=== PATIENT | male | born 1990 | race Caucasian/White ===

== ENCOUNTER 2016-11-03 20:50 | Emergency (ER) | payer OTHER ==
--- NOTE | 2016-11-03 22:20 | ER PHYSICIAN DOCUMENTATION ---
Physician Documentation [facility] Name:See Montoya Age:26 yrs Sex:Male :1990 Arrival Date:11/03/2016 Time:20:50 Bed1 Private MD: Ramu Rodriguez Disposition: 11/03/16 22:08 Discharged to Home/Self Care. Impression: Hand Laceration - : 3cm length; Simple Surgical Closure (by MD). - Condition is Good. - Discharge Instructions: LACERATION, Hand. - Medical Reconciliation form form. - Follow up: Private Physician; When: 11/13/2016; Reason: Continuance of care, Staple/Suture removal. - Problem is new. - Symptoms are resolved. - Notes: Keep wound clean, dry and covered. Wash with soapy water every day, dry and apply Bacitracin Ointment each day. Sutures out in 10 days. Remember Year 2016....your last Tetanus Booster! HPI: 11/03 21:15 This 26 yrs old Male presents to ER via Private Vehicle with complaints of cd Laceration To Hand - LEFT. 21:15 The patient has a laceration related to: patient reports "cutting a bar of soap with a cd knife" and ended up cutting the palm of his left hand occurred at home, and there are no complicating factors. The injury was accidental. The laceration(s) is(are) located on the palm of left hand. Onset: The symptom(s)/episode began/occurred acutely, just prior to arrival. Associated signs and symptoms: The patient has no apparent associated signs or symptoms. Historical: - Allergies: No known drug Allergies; - Home Meds: 1. levothyroxine oral - PMHx: HYPOTHYROIDISM; - PSHx: None; - Tetanus: < 10 years. - Ebola Screening: : Patient negative for fever greater than or equal to 101.5 degrees Fahrenheit, and additional compatible Ebola Virus Disease symptoms. - Immunization history: Flu Vaccine None. - Social history: Smoking status: Patient states was never smoker of tobacco. ROS: 21:15 MS/extremity: Positive for laceration, of the palm of left hand. cd 21:15 Skin: Positive for laceration(s). 21:15 Neuro: Negative for numbness, tingling. 21:15 All other systems are negative. Exam: 21:15 Musculoskeletal/extremity: Extremities: grossly normal except: noted in the palm of cd left hand: laceration, ROM: no acute changes, Circulation is intact in all extremities. Sensation intact. 21:15 Constitutional: The patient appears alert, anxious. 21:15 Skin: Appearance: normal except for affected area, injury, laceration(s), the wound is approximately 3 cm(s), with a depth of 0.5 cm(s), of the palm of left hand, that can be described as clean, no foreign body, linear, with mild bleeding. Vital Signs: 21:16 BP 119 / 71; Pulse 78; Resp 15; Temp 98.3(TE); Pulse Ox 96% on R/A; Weight 74.39 kg; rh Height 5 ft. 9 in. (175.26 cm); Pain 0/10; 21:16 Body Mass Index 24.22 (74.39 kg, 175.26 cm) rh Laceration: 21:15 Wound Repair of 3cm ( 1.2in ) subcutaneous laceration to palm of left hand. Linear cd shaped.. Minimal bleeding noted.. Distal neuro/vascular/tendon intact. Anesthesia: Local anesthetic administered with 4 mls of 0.5% marcaine. Wound prep: Extensive cleansing with hibiclenz. Skin closed with 12 5-0 Ethilon using Interrupted sutures. Dressed with Bacitracin, Nasir. Patient tolerated well. MDM: 21:09 Patient medically screened. cd 21:20 Data interpreted: Pulse oximetry: on room air is 96 %. Interpretation: normal. cd Counseling: I had a detailed discussion with the patient and/or guardian regarding: the historical points, exam findings, and any diagnostic results supporting the discharge/admit diagnosis, the need for outpatient follow up, for a recheck, with the patient's primary care provider, to return to the emergency department if symptoms worsen or persist or if there are any questions or concerns that arise at home. Response to treatment: the patient's symptoms have markedly improved after treatment, the patient's condition has returned to base line, and as a result, I will discharge patient. 22:00 Data reviewed: vital signs, nurses notes, old medical records, and as a result, I will cd discharge patient. 11/03 22:19 Order name: Wound Care; Complete Time: 22:19 rh Dispensed Medications: 22:18 Drug: Adacel 0.5 ml; {Decorating Inspector: Sanofi P[employer] ([employer]). Exp: 06/28/2018. Lot #: [id number]. } Route: IM; Site: left deltoid; 22:19 Follow up: Response: No adverse reaction Signatures: Ramu Guadarrama MD MD cd Hofsess, Rachel
--- NOTE | 2016-11-03 22:20 | ER NURSING DOCUMENTATION ---
Nurse's Notes [facility] Name:See Montoya Age:26 yrs Sex:Male :1990 Arrival Date:11/03/2016 Time:20:50 Bed1 Private MD: Diagnosis:Hand Laceration-: 3cm length; Simple Surgical Closure (by MD) Presentation: 11/03 21:08 Acuity: IRASEMA 4 rh 21:14 Presenting complaint: Patient states: Pt cut the left hand while cutting a bar of soap rh with a knife. Transition of care: Home. Complicating Factors: There are no complicating factors for this patient. 21:14 Method Of Arrival: Private Vehicle Triage Assessment: 21:15 General: Appears in no apparent distress, Behavior is appropriate for age, cooperative. rh Pain: Complains of pain in palm of left hand. Injury Description: Laceration sustained to palm of left hand is clean, 0.5 to 2.5 cm long, was sustained less than 30 minutes ago. is bleeding a small amount. 21:16 Musculoskeletal: Circulation, motion, and sensation intact Range of motion intact in rh all extremities. Historical: - Allergies: No known drug Allergies; - Home Meds: 1. levothyroxine oral - PMHx: HYPOTHYROIDISM; - PSHx: None; - Tetanus: < 10 years. - Ebola Screening: : Patient negative for fever greater than or equal to 101.5 degrees Fahrenheit, and additional compatible Ebola Virus Disease symptoms. - Immunization history: Flu Vaccine None. - Social history: Smoking status: Patient states was never smoker of tobacco. Screenin:16 Infectious Disease Risk None. Abuse screen: Denies threats or abuse. Denies injuries rh from another. Nutritional screening: No deficits noted. Assessment: 21:16 See Triage Assessment done by same RN. rh Vital Signs: 21:16 BP 119 / 71; Pulse 78; Resp 15; Temp 98.3(TE); Pulse Ox 96% on R/A; Weight 74.39 kg; rh Height 5 ft. 9 in. (175.26 cm); Pain 0/10; 21:16 Body Mass Index 24.22 (74.39 kg, 175.26 cm) rh ED Course: 21:02 Patient arrived in ED. dp 21:08 Triage completed. rh 21:09 Ramu Guadarrama MD is Attending Physician. cd 21:14 Justine Austin is Primary Nurse. rh 21:16 Notified ED Physician of patient's arrival and chief complaint. Dr. Guadarrama notified. rh 21:16 Valuables Remains with patient Patient has correct armband on for positive rh identification. Bed in low position. Call light in reach. Side rails up X 1. Family accompanied patient. 21:55 Wound care to laceration located on palm of left hand was cleaned with soap and water, rh Patient tolerated well. 22:14 Assist Provider Assist provider with laceration repair on palm of left hand that was rh 2.5 cm. or less using sutures. Set up tray. Performed by Ramu Guadarrama MD Dressed with Kerlix, Nasir, Neosporin, Patient tolerated well. Administered Medications: 22:18 Drug: Adacel 0.5 ml; {Health And Fitness Instructor: Sanofi P[employer] ([employer]). Exp: 06/28/2018. Lot #: [id number]. } Route: IM; Site: left deltoid; 22:19 Follow up: Response: No adverse reaction rh Outcome: 22:08 Discharge ordered by . cd 22:19 Discharged to home ambulatory, with significant other. rh 22:19 Condition: improved 22:19 Discharge Assessment: Patient awake, alert and oriented x 3. No cognitive and/or functional deficits noted. Patient verbalized understanding of disposition instructions. 22:19 Discharge instructions given to patient, significant other, Instructed on discharge instructions, follow up and referral plans. Demonstrated understanding of instructions. 22:19 Patient left the ED. Signatures: Ramu Guadarrama MD MD cd Hofsess, Rachel Bing Aguirre dp
[2016-11-03] MEDS ORDERED: DIPH,PERTUSS(ACELL),TET VAC/PF 0.5 ML VIAL IM ONE (22:26)
== END 2016-11-03 22:20 | disposition home or self-care (01) ==
LOC: ER 20:50
DX: S61.412A Laceration without foreign body of left hand, initial encounter (principal); W26.0XXA Contact with knife, initial encounter; Z23 Encounter for immunization
CPT/HCPCS: 12042; 90471; 99283